=== PATIENT | female | born 1985 | race Caucasian/White ===

== ENCOUNTER 2021-07-15 00:13 | Emergency (ER) | payer OTHER, SELFPAY ==
--- NOTE | ~2021-07-15 | XR_ITS ---
XR chest 1V portable DATE: 07/15/2021 00:38 INDICATION: Chest pressure, shortness of breath, palpitations TECHNIQUE: Portable upright AP chest on 07/15/2021 at 0035 hours COMPARISON: None FINDINGS: Normal heart size. No hilar or mediastinal enlargement. No pulmonary infiltrate or consolid ation, pleural effusion or pulmonary vascular congestion or pneumothorax. Included skeletal structure s are unremarkable. IMPRESSION: No active disease Reviewed, dictated and finalized at location A. OLOGY TECHNICIAN IMPRESSION: No active disease
[2021-07-15 00:17] VITALS: BP 138/97; PULSE 135; RESP 20; O2SAT 95
--- NOTE | 2021-07-15 00:25 | ECG_ITS ---
Measurements Intervals Edwards Rate: 121 P: 53 MN: 158 QRS: 15 QRSD: 94 T: 90 QT: 328 QTc: 467 Interpretive Statements SINUS TACHYCARDIA POSSIBLE LEFT ATRIAL ENLARGEMENT CANNOT RULE OUT SEPTAL INFARCT, AGE INDETERMINATE NONSPECIFIC ST & T-WAVE ABNORMALITY- DIFFUSE LEADS ABNORMAL ECG Electronically Signed On 07-15-2021 6:10:26 ALLERGY SPECIALIST by Justin Villatoro D.O.
[2021-07-15] MEDS: LORazepam (*CRX) 1 MG TABLET PO (00:36)
[2021-07-15 00:43] VITALS: O2SAT 95
[2021-07-15 00:51] LABS: Basophils Absolute Auto 0.1 K/mm3 (0.0-0.1); Basophils Percent Auto 0.7 % (0.2-1.2); Eosinophils Absolute Auto 0.6 K/mm3 (0-0.3); Eosinophils Percent Auto 4.5 % (0-4.4); Hematocrit 44.7 % (37.0-47.0); Hemoglobin 15.2 g/dL (12.0-15.0); Immature Granulocyte Absolute 0.04 K/mm3 (0.00-0.031); Immature Granulocyte Percent A 0.3 % (0-0.5); Lymphocytes Absolute Auto 4.59 K/mm3 (0.9-3.2); Lymphocytes Percent Auto 34.1 % (18.3-44.2); Mean Corpuscular Hemoglobin 31.9 pg (26-34); Mean Corpuscular Volume 93.7 fl (80-100); Mean Platelet Volume 10.2 fl (7.4-10.4); Monocytes Absolute Auto 0.6 K/mm3 (0.1-0.6); Monocytes Percent Auto 4.2 % (2.6-8.5); Neutrophils Absolute Auto 7.6 K/mm3 (1.3-6.7); Neutrophils Percent Auto 56.2 % (45.5-73.1); Platelet Count Result 272 k/mm3 (150-375); Red Blood Count 4.77 M/mm3 (4.2-5.4); Red Cell Distribution Width 13.4 % (11.5-14.5); White Blood Count 13.5 K/mm3 (4.5-10.0)
--- NOTE | 2021-07-15 01:01 | ED.ARRPALP ---
HPI - Arrhythmia/Palpitations General Chief Complaint: Arrhythmia/Palpitations Stated Complaint: Chest pressure Time Seen by Provider: 07/15/21 00:27 Source: patient Mode of arrival: ambulatory History of Present Illness HPI narrative: 36-year-old otherwise healthy here with complaints of palpitations, hard time catching breath since the last few hours. Patient states that she had a similar episode the night before. She denies any fever or chills no history of cough. She denies any previous episodes of anxiety or panic attacks. complaint: heart racing Onset (ago): hour(s) (4) Duration: constant Severity: moderate Context: occurred during rest Associated symptoms: denies other symptoms Related Data Allergies Allergy/AdvReac Type Severity Reaction Status Date / Time latex Allergy Intermediate Rash Verified 07/15/21 00:32 lansoprazole [From Prevacid] AdvReac Vomiting Verified 07/15/21 00:32 Review of Systems Review of Systems: All systems reviewed & are unremarkable except as noted in HPI and below Constitutional: Constitutional: Reports no additional constitutional complaints Eyes: Eyes: Reports no additional eye complaints ENT: Reports system reviewed and no additional complaints, except as documented Cardiovascular: Cardiovascular: Reports as per HPI Respiratory: Respiratory: Reports as per HPI Gastrointestinal: Gastrointestinal: Reports no additional gastrointestinal complaints Musculoskeletal: Musculoskeletal: Reports no additional musculoskeletal complaints Integumentary/Breasts: Skin/Breast: Reports system reviewed and no additional complaints, except as docu Neurologic: Reports system reviewed and no additional complaints, except as documented PMFSH Family History Family History Other Diabetes mellitus Family history of osteoarthritis Social History Social History Second hand tobacco smoke exposure: Yes Alcohol intake: never Exam Narrative: GENERAL: Well-appearing, well-nourished, anxious HEAD: Normocephalic, atraumatic. EYES: PERRLA and EOMI. NECK: Supple. CHEST: Clear to auscultation. No respiratory distress. HEART: Tachycardic. No murmur heard. Normal peripheral pulses. ABDOMEN: Soft, nontender, nondistended, normal active bowel sounds. EXTREMITIES: Normal range of motion. No edema. SKIN: Warm, dry, no rash. NEURO: No focal deficits. Alert and oriented x3. PSYCH: Anxious .. Course Course Emergency Course: Patient feeling much better. She states that not racing anymore after Ativan. Informed her about the lab work. Advised her to quit smoking. Follow-up with her primary doctor. Vital Signs Vital signs: Vital Signs Pulse Rate 135 H 07/15/21 00:17 Respiratory Rate 20 07/15/21 00:17 Blood Pressure 138/97 H 07/15/21 00:17 Pulse Oximetry 95 07/15/21 00:17 Pulse Rate 135 H 07/15/21 00:17 Respiratory Rate 20 07/15/21 00:17 Blood Pressure 138/97 H 07/15/21 00:17 Pulse Oximetry 95 07/15/21 00:43 MDM - Arrhythmia/Palpitations Lab Data Result diagrams: 07/15/21 00:45 07/15/21 00:45 Labs: Lab Results 07/15/21 07/15/21 07/15/21 Range/Units 00:45 00:45 00:45 WBC 13.5 H (4.5-10.0) K/mm3 RBC 4.77 (4.2-5.4) M/mm3 Hgb 15.2 H (12.0-15.0) g/dL Hct 44.7 (37.0-47.0) % MCV 93.7 (80-100) fl MCH 31.9 (26-34) pg MCHC 34.0 (32-36) g/dl RDW 13.4 (11.5-14.5) % Plt Count 272 (150-375) k/mm3 MPV 10.2 (7.4-10.4) fl Immature Gran % (Auto) 0.3 (0-0.5) % Neut % (Auto) 56.2 (45.5-73.1) % Lymph % (Auto) 34.1 (18.3-44.2) % Pickett % (Auto) 4.2 (2.6-8.5) % Eos % (Auto) 4.5 H (0-4.4) % Baso % (Auto) 0.7 (0.2-1.2) % Lymph # (Auto) 4.59 H (0.9-3.2) K/mm3 Pickett # (Auto) 0.6 (0.1-0.6) K/mm3 Eos # (Auto) 0.6 H (0-0.3) K/mm3 Baso # (Auto) 0.1
[2021-07-15 01:11] LABS: D Dimer 0.56 ug/mL (<0.48)
[2021-07-15 01:16] LABS: Anion Gap 11 mmol/L (8-16); Blood Urea Nitrogen 9 mg/dL (7-17); Calcium 9.2 mg/dL (8.4-10.2); Carbon Dioxide 21 mmol/L (22-30); Chloride 109 mmol/L (98-107); Estimated CRCL calculation 78 ml/min; Estimated Glomerular Filt Rate > 60; Glucose 115 mg/dL (65-110); Potassium 3.8 mmol/L (3.4-5.0); Sodium 141 mmol/L (137-145)
[2021-07-15 01:34] VITALS: BP 109/80; PULSE 106; RESP 21; O2SAT 96
== END 2021-07-15 01:47 | disposition home or self-care (01) ==
PROVIDERS: Emergency Provider Family Medicine
DX: F41.9 Anxiety disorder, unspecified (principal); Z77.22 Contact with and (suspected) exposure to environmental tobacco smoke (acute) (chronic); R00.0 Tachycardia, unspecified; R94.31 Abnormal electrocardiogram [ECG] [EKG]
CPT/HCPCS: 36415; 71045; 80048; 85025; 85380; 93005; 99283; A9270

== ENCOUNTER 2021-08-11 15:24 | Emergency (ER) | payer OTHER, SELFPAY ==
[2021-08-11 15:35] VITALS: BP 118/89; PULSE 119; RESP 20; TEMP 37.2; O2SAT 98
--- NOTE | 2021-08-11 15:54 | ED.SOB ---
HPI - SOB/Dyspnea General Chief Complaint: Shortness of Breath/Dyspnea Stated Complaint: shortness of breath Time Seen by Provider: 08/11/21 15:45 Source: patient Mode of arrival: ambulatory Limitations: no limitations History of Present Illness HPI Narrative: 36 yo F presents with c/o SOB, dry cough, difficulty breathing for approx. 3 wks. started after getting covid vaccine. Was seen at ER and told symptoms were anxiety. followed up with PCP and rx zoloft and antivan. Taking zoloft for 1 wk and ativan as needed and states SOB getting worse. cannot take deep breath. pt is tearful. states she cannot sleep. cannot lay flat or feels worse. called PCP office today for another appt but has not heard back. denies CP but reports heaviness in chest. pt want's breathing tx. all systems reviewed and negative except as noted above. Related Data Home Medications Medication Instructions Recorded Confirmed lorazepam [Ativan] 0.5 mg PO BID PRN 08/11/21 08/11/21 sertraline 50 mg PO DAILY 08/11/21 08/11/21 Allergies Allergy/AdvReac Type Severity Reaction Status Date / Time latex Allergy Intermediate Rash Verified 07/15/21 00:32 lansoprazole [From Prevacid] AdvReac Vomiting Verified 07/15/21 00:32 Review of Systems Review of Systems: CONSTITUTIONAL: Denies fever, chills, or sweats. EYES: Denies visual changes, redness, or discharge. ENT: Denies rhinorrhea, congestion, sore throat, or otalgia. CARDIOVASCULAR: Denies chest pain, palpitations, or edema. Complaint of chest pressure. RESPIRATORY: Reports cough and dyspnea. GASTROINTESTINAL: Denies abdominal pain, nausea, vomiting, or diarrhea. GENITOURINARY: Denies dysuria or hematuria. SKIN: Denies rash or itching. MUSCULOSKELETAL: Denies back pain, joint pain, or myalgia. NEUROLOGIC: Denies headache, numbness, or weakness. PSYCHIATRIC: Denies anxiety or depression. All other systems reviewed are negative, except as documented in HPI. [facility] Family History Family History Other Diabetes mellitus Family history of osteoarthritis Social History Social History Second hand tobacco smoke exposure: Yes Alcohol intake: never Comments At time of signature, agree with nursing past medical, surgical, social and family history. There is no relevant family history pertinent to the presenting complaint. Exam Narrative: GENERAL: This is a well-nourished, well-developed patient, in no apparent distress. Patient is tearful HEAD: normocephalic, atraumatic. EYES: PERRL. Sclera clear/white. Vision is grossly intact. EARS: External ears normal, auditory canals clear and without drainage, TMs normal without perforation. Hearing grossly intact. NOSE: External nose normal with no obvious nasal discharge, nares without redness, no rhinorrhea. THROAT: Mucous membranes moist, posterior pharynx clear. NECK: Neck supple, non-tender without lymphadenopathy, masses or thyromegaly. CARDIOVASCULAR: Regular rate and rhythm without murmurs, gallops, or rubs. RESPIRATORY: Clear to auscultation. Breath sounds equal bilaterally. No wheezes, rales, or rhonchi. tachypneic GASTROINTESTINAL: Abdomen soft, non-tender, nondistended. Bowel sounds are active. No hepato-splenomegaly, or palpable masses. No guarding. SKIN: warm, Dry, intact with no suspicious lesions or rash, good texture and turgor. NEURO: awake, alert, and oriented to person, place and time. There were no obvious focal neurologic abnormalities. EXTREMITIES: No joint tenderness, effusion, or edema noted. No calf tenderness. Negative Homans sign bilaterally. BACK: Nontender without deformity. No CVA tenderness. Course Course Level of Care: Express Care Visit Vital Signs Vital signs: Vital Signs Temperature 37.2 C 08/11/21 15:35 Pulse Rate 119 H 08/11/21 15:35 Respiratory Rate 20 08/11/21 15:35 Blood Pressure 118/89 08/11/21 15:35 Pulse
== END 2021-08-11 16:15 | disposition left against medical advice (07) ==
PROVIDERS: Emergency Provider Nurse Practitioner Family; PCP Internal Medicine
DX: R06.02 Shortness of breath (principal); F41.9 Anxiety disorder, unspecified
CPT/HCPCS: 99211; G0463

== ENCOUNTER 2022-02-16 11:00 | Outpatient (RCR) | payer OTHER, SELFPAY ==
[2022-01-07 11:38] VITALS: PULSE 65
== END 2022-03-03 11:22 | disposition home or self-care (01) ==
LOC: ANHCPREHAB 11:00
PROVIDERS: PCP Internal Medicine
DX: I50.89 Other heart failure (principal)
CPT/HCPCS: 93798

== ENCOUNTER 2025-01-26 17:37 | Emergency (ER) | payer MEDICARE, SELFPAY ==
--- NOTE | 2025-01-26 17:51 | ED_ITS ---
HPI - General Adult General Chief complaint: Wound/Laceration Stated complaint: Right Hand Finger Laceration Time Seen by Provider: 01/26/25 17:53 Source: patient Mode of arrival: ambulatory Limitations: no limitations History of Present Illness HPI narrative: 39-year-old female patient presents to the [facility] with complaints of a laceration to the right middle finger. Patient states that she was assisting h er significant other and cutting up some branches and doing some yd work and states that her significant other accidentally cut her finger with with some maya. Patient denies numbness or tingling at this time. Denies taking anything for pain prior to arrival. Related Data Home Medications ?Medication ?Instructions ?Recorded ?Confirmed ?Last Taken ?Type lorazepam 0.5 mg tablet (Ativan) 0.5 mg PO BID PRN anxiety 08/11/21 08/11/21 Unknown History sertraline 50 mg tablet 50 mg PO DAILY 08/11/21 08/11/21 Unknown History empagliflozin 10 mg tablet mg 01/26/25 Unknown History (Jardiance) hydroxyzine HCl 50 mg tablet mg 01/26/25 Unknown History sacubitril 24 mg-valsartan 26 mg tablet 01/26/25 Unknown History tablet (Entresto) semaglutide (weight loss) 0.5 mg subcut 01/26/25 Unknown History mg/0.5 mL subcutaneous pen injector (Wegovy) spironolactone 25 mg tablet mg 01/26/25 Unknown History trazodone 50 mg tablet mg 01/26/25 Unknown History Allergies Allergy/AdvReac Type Severity Reaction Status Date / Time latex Allergy Intermediate Rash Verified 01/26/25 17:49 lansoprazole (From Prevacid) AdvReac Vomiting Verified 01/26/25 17:49 Review of Systems Review of Systems: CONSTITUTIONAL: Denies fever, chills, or sweats. EYES: Denies visual changes, redness, or discharge. ENT: Denies rhinorrhea, congestion, sore throat, or otalgia. CARDIOVASCULAR: Denies chest pain, palpitations, or edema. RESPIRATORY: Denies cough or dyspnea. GASTROINTESTINAL: Denies abdominal pain, nausea, vomiting, or diarrhea. GENITOURINARY: Denies dysuria or hematuria. SKIN: Denies rash or itching. Positive laceration right middle finger tip MUSCULOSKELETAL: Denies back pain, joint pain, or myalgia. NEUROLOGIC: Denies headache, numbness, or weakness. PSYCHIATRIC: Denies anxiety or depression. [facility] Social History Social History Smoking packs per day: 1 Smoking cigarettes per day: 20.0 Years smoked: 23 Smoking pack-years: 23.00 Smoking status: Former smoker Tobacco type: cigarettes Second hand tobacco smoke exposure: Yes Alcohol intake: never Comments At the time of my signature I agree with nursing past medical history, surgical, social, and family history. There is no relevant family history pertinent to the presenting complaint. Exam Narrative: GENERAL: Well-appearing, well-nourished, and in no acute distress. HEAD: Normocephalic, atraumatic. EYES: PERRLA and EOMI. ENT: Nares clear, no rhinorrhea or epistaxis. Mucous membranes moist. NECK: Supple. No lymphadenopathy CHEST: Clear to auscultation. No respiratory distress. HEART: Regular rate and rhythm. No murmur heard. Normal peripheral pulses. ABDOMEN: Soft, nontender, nondistended, normal active bowel sounds. EXTREMITIES: Normal range of motion. No edema. SKIN: Warm, dry, no rash. Patient has a crescent like shape laceration noted to the right middle distal finger tip. The wound is well-approximated and does look pretty superficial bleeding is controlled at this time very small involvement of the nail at the tip. NEURO: No focal deficits. Alert and oriented x3. Course Course Level of Care: Express Care Visit Vital Signs Vital signs: Vital Signs Temperature 36.1 C L 01/26/25 18:00 Pulse Rate 85 01/26/25 18:00 Respiratory Rate 18 01/26/25 18:00 Blood Pressure 106/72 01/26/25 18:00 Pulse Oximetry 100 01/26/25 18:00 Oxygen Delivery Room Air 01/26/25 18:00 Temperature 36.1 C L 01/26/25 18:00 Pulse Rate 85 01/26/25 18:00 Respiratory Rate 18 01/26/25 18:00 Blood Pressure 106/72 01/26/25 18:00 Pulse Oximetry 100 01/26/25 18:00 Oxygen Delivery Room Air 01/26/25 18:00 Vital signs reviewed. Procedures Laceration Laceration 1: Date: 01/26/25 Time: 18:23 Site: hand (Middle finger) Side (If applicable): right Size (cm): 1.5 Description: flap Depth: simple, single layer Local Anesthetic: none Pre-repair: wound explored, irrigated and irrigated extensively ====== Skin Level ====== ====== Subcutaneous Layer ====== ====== Muscle Layer ====== ====== Tendon Layer ====== Dressing: The Procedure was explained and verbal consent was obtained. Sterile drape and prep were done. Copious irrigation was done with saline and Shur-Clens and the wound was explored. There was no foreign body or deep structure injury noted. Patient had good range of motion. Wound edges were approximated with good alignment using skin adhesive and Steri-Strips. There were for Steri-Strips placed. The patient tolerated the procedure well without adverse effects. Medical Decision Making MDM Narrative Medical decision making narrative: Plan care for patient is to glue and use Steri-Strips for the distal laceration. The wound will be cleaned and we will update her tetanus shot today. May send home with prophylactic antibiotics since it is on the tip and it was with dirty maya. Differential Diagnosis Differential Diagnosis: Differential diagnosis: Simple, intermediate, or complex laceration. Vital Signs Vital Signs: Vital Signs Temperature 36.1 C L 01/26/25 18:00 Pulse Rate 85 01/26/25 18:00 Respiratory Rate 18 01/26/25 18:00 Blood Pressure 106/72 01/26/25 18:00 Pulse Oximetry 100 01/26/25 18:00 Oxygen Delivery Room Air 01/26/25 18:00 Temperature 36.1 C L 01/26/25 18:00 Pulse Rate 85 01/26/25 18:00 Respiratory Rate 18 01/26/25 18:00 Blood Pressure 106/72 01/26/25 18:00 Pulse Oximetry 100 01/26/25 18:00 Oxygen Delivery Room Air 01/26/25 18:00 Critical Care Time Critical Care Time Critical Care Time: No Discharge Plan Discharge Clinical Impression: Laceration of blood vessel of right middle finger Qualifiers: Encounter type: initial encounter Qualified Code(s): S65.512A - Laceration of blood vessel of right middle finger, initial encounter Patient Disposition: Home Condition: Stable Instructions: Antibiotic Form, Laceration (ED) Additional Instructions: -adhesive works like a bandage; do not use antibiotic onitment as it can break down the adhesive -You can shower while the adhesive is on your skin, but do not take a bath or soak or scrub the area for 7-10 days. Dry your skin by patting it gently with a towel. -The adhesive will peel off on its own; usually by 5-10days. If after 10 days, you still have adhesive on you, you can use antibiotic ointment or petroleum jelly to get it off. After you heal, you should protect the scar from the sun. Use sunscreen on the area or wear clothes or a hat that covers the scar. Follow up with your PCP is needed Patient Language: Lao Prescriptions: New cephalexin 500 mg capsule 500 mg PO Q12H 5 Days Qty: 10 0RF No Action trazodone 50 mg tablet hydroxyzine HCl 50 mg tablet spironolactone 25 mg tablet Jardiance 10 mg tablet Entresto 24-26 mg tablet Wegovy 0.5 mg/0.5 mL pen injector SUBCUT sertraline 50 mg tablet 50 mg PO DAILY lorazepam [Ativan] 0.5 mg tablet 0.5 mg PO BID PRN (Reason: anxiety) Follow-up/Referrals: Osmani,Yulia Kathleen NP [Primary Care Provider] - Time of Disposition: 18:21
[2025-01-26 18:00] VITALS: BP 106/72; PULSE 85; RESP 18; TEMP 36.1; O2SAT 100
[2025-01-26] MEDS: TETANUS,DIPHTHERIA,AC PERTUSSIS ADULT (0.5 ML) BOOSTRIX IM (18:17)
== END 2025-01-26 18:30 | disposition home or self-care (01) ==
PROVIDERS: Emergency Provider Nurse Practitioner Family; PCP Nurse Practitioner Family
DX: S61.212A Laceration without foreign body of right middle finger without damage to nail, initial encounter (principal); W27.1XXA Contact with garden tool, initial encounter; Z23 Encounter for immunization; Z87.891 Personal history of nicotine dependence; I50.9 Heart failure, unspecified; F41.9 Anxiety disorder, unspecified; F32.A Depression, unspecified
CPT/HCPCS: 12001; 90471; 90715; 99213; G0463